=== PATIENT | female | born 1990 | race Caucasian/White ===

== ENCOUNTER 2023-04-04 15:13 | Emergency (ER) | payer OTHER ==
[2023-04-04] MEDS ORDERED: Bacitracin 1 PK ONE (16:08)
== END 2023-04-04 17:30 | disposition home or self-care (01) ==
LOC: ERS 15:13
DX: S93.402A Sprain of unspecified ligament of left ankle, initial encounter (principal); S00.81XA Abrasion of other part of head, initial encounter; S50.01XA Contusion of right elbow, initial encounter; S61.101A Unspecified open wound of right thumb with damage to nail, initial encounter; V89.2XXA Person injured in unspecified motor-vehicle accident, traffic, initial encounter
CPT/HCPCS: 70486